=== PATIENT | female | born 1985 | race Caucasian/White ===

== ENCOUNTER 2017-05-24 18:50 | Emergency (ER) | payer SELFPAY ==
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
[2017-05-24 21:39] VITALS: BP 124/71
== END 2017-05-24 21:37 | disposition home or self-care (01) ==
LOC: ED 18:50
DX: S13.4XXA Sprain of ligaments of cervical spine, initial encounter (principal); S43.402A Unspecified sprain of left shoulder joint, initial encounter; V43.52XA Car driver injured in collision with other type car in traffic accident, initial encounter; Y92.9 Unspecified place or not applicable
CPT/HCPCS: 72040; 99282